=== PATIENT | female | born 1995 | race Caucasian/White ===

== ENCOUNTER 2016-10-24 08:08 | Emergency (ER) | payer MEDICAID, OTHER ==
[~2016-10-24] VITALS: Ht 162.6 cm; Wt 51.5 kg
[2016-10-24 08:11] VITALS: Ht 162.6 cm; Wt 51.5 kg
[2016-10-24] MEDS ORDERED: HC1C30 TOP (08:34)
[2016-10-24] MEDS ORDERED: BEN25 PO (08:34)
--- NOTE | 2016-10-24 09:19 | ERD ---
ER Documentation Chief Complaint Date/Time DATE: 10/24/16 TIME: 09:15 Chief Complaint GENERALIZE RASH, [id number], ONLY FACE TODAY HPI This is a 20-year-old female presents emergency department for evaluation of rash. Upon arrival, patient does not have a rash. Patient states she had a pruritic rash 2-3 weeks ago after eating a snickers bar. Patient states she took Benadryl and soon after rash resolved. Patient states in the last week she developed similar rash that went away after taking Benadryl. Patient states she is unaware of any allergies. No new soap or detergent. No new medications. Patient states she has had similar reaction after eating nutella. Does not recall eating any new foods. Denies shortness of breath or difficulty breathing. No wheezing. No chest pain. ROS All systems reviewed and are negative except as per history of present illness. Medications Home Meds Active Scripts Hydrocortisone* Topical (Hydrocortisone* Topical) 1%-28.35 Gm Cream..g., 1 APPLIC TOP Q6 Y for ITCHING, #1 TUB Prov:NAHED BARKER NP 10/24/16 Diphenhydramine Hcl* (Benadryl*) 25 Mg Cap, 25 MG PO Q6, #20 CAP Prov:NAHED BARKER NP 10/24/16 Allergies Allergies: Coded Allergies: No Known Allergy (Unverified , 10/24/16) PMhx/Soc Medical and Surgical Hx: pt denies Medical Hx, pt denies Surgical Hx Hx Alcohol Use: No Hx Substance Use: No Hx Tobacco Use: No Smoking Status: Never smoker Physical Exam Vitals Vital Signs Date Time Temp Pulse Resp B/P Pulse Ox O2 Delivery O2 Flow Rate FiO2 10/24/16 08:11 98.6 102 18 130/82 99 Physical Exam Const: No acute distress, alert Head: Atraumatic Eyes: Normal Conjunctiva ENT: Normal External Ears, Nose and Mouth. Neck: Full range of motion..~ No meningismus. Resp: Clear to auscultation bilaterally. No wheezing, rhonchi or crackles. No stridor or labored breathing. Cardio: Regular rate and rhythm, no murmurs Abd: Soft, non tender, non distended. Normal bowel sounds Skin: No petechiae or rashes Back: No midline or flank tenderness Ext: No cyanosis, or edema Neur: Awake and alert Psych: Normal Mood and Affect Procedures/MDM MDM: This is a 20-year-old female presents emergency department for evaluation of rash. Upon arrival, patient presents without rash. Patient states rash went away prior to arrival after taking Benadryl. Denies any pruritus or lesions. Patient states she developed rash after eating Nutella in the past. No signs or symptoms of respiratory distress. Oxygen saturation 99% on room air. Lung exam is unremarkable. No rash on physical exam. Patient denies pruritus. Patient states she was concerned if rash returns. Differential diagnosis includes but not limited to allergic reaction, contact dermatitis, fungal infection, cellulitis, scabies, insect bite or eczema. Low suspicion for anaphylactic reaction. Patient is appropriate for outpatient management and will given prescription for Benadryl and hydrocortisone cream. Instructed patient to follow-up with primary care provider in the next 2-3 days for reassessment and may need referral to toolroom machinist or water pollution scientist. Resources provided. Return to ED for any high fever, chest pain, difficulty breathing, shortness breath, wheezing, vomiting, diarrhea, abdominal pain or any new or worsening symptoms. Patient verbalizes understanding. All questions answered at discharge. Departure Diagnosis: Primary Impression: Rash Condition: Stable Patient Instructions: Allergic Reaction, Other (General) Referrals: COMMUNITY CLINICS YOU HAVE RECEIVED A MEDICAL SCREENING EXAM AND THE RESULTS INDICATE THAT YOU DO NOT HAVE A CONDITION THAT REQUIRES URGENT TREATMENT IN THE EMERGENCY DEPARTMENT. FURTHER EVALUATION AND TREATMENT OF YOUR CONDITION CAN WAIT UNTIL YOU ARE SEEN IN YOUR DOCTORS OFFICE WITHIN THE NEXT 1-2 DAYS. IT IS YOUR RESPONSIBILITY TO MAKE AN APPOINTMENT FOR FOLOW-UP CARE. IF YOU HAVE A PRIMARY DOCTOR --you should call your primary doctor and schedule an appointment IF YOU DO NOT HAVE A PRIMARY DOCTOR YOU CAN CALL OUR PHYSICIAN REFERRAL HOTLINE AT IF YOU CAN NOT AFFORD TO SEE A PHYSICIAN YOU CAN CHOSE FROM THE FOLLOWING [facility] CLINICS [facility] [address] [facility] [address] [facility] [facility] [address] [facility] [address] [facility] [address] [facility] [address] [facility]. [facility] YOU HAVE RECEIVED A MEDICAL SCREENING EXAM AND THE RESULTS INDICATE THAT YOU DO NOT HAVE A CONDITION THAT REQUIRES URGENT TREATMENT IN THE EMERGENCY DEPARTMENT. FURTHER EVALUATION AND TREATMENT OF YOUR CONDITION CAN WAIT UNTIL YOU ARE SEEN IN YOUR DOCTORS OFFICE WITHIN THE NEXT 1-2 DAYS. IT IS YOUR RESPONSIBILITY TO MAKE AN APPOINTMENT FOR FOLOW-UP CARE. IF YOU HAVE A PRIMARY DOCTOR --you should call your primary doctor and schedule and appointment IF YOU DO NOT HAVE A PRIMARY DOCTOR YOU CAN CALL OUR PHYSICIAN REFERRAL HOTLINE AT . IF YOU CAN NOT AFFORD TO SEE A PHYSICIAN YOU CAN CHOSE FROM THE FOLLOWING [facility]IONS: [facility] [address] [place] [address] [facility] [address] [place], [place] [id number] [place] [address] [address] [place] [address] Additional Instructions: Call your primary care doctor TOMORROW for an appointment during the next 2-3 days.See the doctor sooner or return here if your condition worsens before your appointment time. Return to ED for any high fever, chest pain, difficulty breathing, shortness breath, wheezing, vomiting, diarrhea, abdominal pain or any new or worsening symptoms. NAHED BARKER NP Oct 24, 2016 09:19
== END 2016-10-24 08:44 | disposition home or self-care (01) ==
LOC: FTE 08:08
DX: R21 Rash and other nonspecific skin eruption (principal)
CPT/HCPCS: 99283